=== PATIENT | male | born 2000 | race Caucasian/White ===

== ENCOUNTER 2019-12-11 21:13 | Emergency (ER) | payer OTHER ==
[2019-12-11] MEDS ORDERED: Ondansetron INJ* 2 MG/ML VIAL IV ONE ×2 (21:34→22:15)
[2019-12-11] MEDS ORDERED: NS 0.9% 1000 ML** 1,000 ML IV ONE ×3 (21:35→22:09)
--- NOTE | 2019-12-11 21:47 | UC ---
Nausea/Vomiting/Diarrhea HPI - HPI Summary HPI Summary: 19-year-old male comes in with a chief complaint of nausea and vomiting. Started about 4 hours ago. He gets epigastric pain with vomiting and then the pain goes away. No abdominal pain at rest. No fevers measured he has had some chills he does have bit of a headache his mouth feels dry and he does feel lightheaded when he tries to stand up. His girlfriend had the same symptoms 2 days ago and she got better with some IV fluid and Zofran. - History of Current Complaint Chief Complaint: UCGeneralIllness Stated Complaint: VOMITING Time Seen by Provider: 12/11/19 21:31 Pain Intensity: 5 - Allergies/Home Medications Allergies/Adverse Reactions: Allergies Allergy/AdvReac Type Severity Reaction Status Date / Time amoxicillin Allergy rash, Verified 12/11/19 21:20 throat closing Penicillins Allergy rash, Verified 12/11/19 21:20 throat closing Home Medications: Home Medications Allertec* 12/11/19 [History] Ondansetron TAB* [Zofran 4 MG Tab*] 4 mg PO ONCE PRN 12/11/19 [History Confirmed 12/11/19] Sertraline* [Zoloft*] 100 mg PO DAILY 12/11/19 [History Confirmed 12/11/19] buPROPion HCl [Bupropion HCl ER] 150 mg PO DAILY 12/11/19 [History Confirmed ] PMH/Surg Hx/FS Hx/Imm Hx Previously Healthy: Yes - Surgical History Surgical History: Yes Surgery Procedure, Year, and Place: wisdom teeth - Family History Known Family History: Positive: Non-Contributory - Social History Alcohol Use: None Substance Use Type: None Smoking Status (MU): Never Smoked Tobacco Review of Systems All Other Systems Reviewed And Are Negative: Yes Constitutional: Positive: Chills, Other - SEE HPI Skin: Positive: Negative Eyes: Positive: Negative ENT: Positive: Other - SEE HPI Respiratory: Positive: Negative Cardiovascular: Positive: Negative Gastrointestinal: Positive: Abdominal Pain, Vomiting, Nausea Motor: Positive: Negative Neurovascular: Positive: Negative Musculoskeletal: Positive: Negative Neurological/Mental Status: Positive: Headache Psychological: Positive: Negative Is Patient Immunocompromised?: No Physical Exam Triage Information Reviewed: Yes Appearance: No Pain Distress, Well-Nourished, Ill-Appearing - MILD Vital Signs: Initial Vital Signs Temp 97.6 F 12/11/19 21:15 Pulse 115 12/11/19 21:15 Resp 22 12/11/19 21:15 BP 109/66 12/11/19 21:15 Pulse Ox 100 12/11/19 21:15 Vital Signs Reviewed: Yes Eye Exam: Normal Eyes: Positive: Conjunctiva Clear ENT: Positive: Other - Oral mucosa dry. Neck: Positive: Supple Respiratory: Positive: Lungs clear, Normal breath sounds, No respiratory distress Cardiovascular: Positive: Tachycardia Abdomen Description: Positive: Nontender, Soft Bowel Sounds: Positive: Hypoactive Musculoskeletal: Positive: Strength Intact, ROM Intact Neurological: Positive: Alert Psychological: Positive: Age Appropriate Behavior Skin: Positive: Other - PALE Naus/Vom/Diarrhea Course/Dx - Course Course Of Treatment: In clinic patient received 2 L of normal saline and total of 4 mg of IV Zofran. He had improvement his dehydration and nausea symptoms. He did have some periumbilical discomfort that was nontender to palpation. He was not tender to palpation in the right lower quadrant. We discussed the signs and symptoms of appendicitis and Meckel's diverticulum. Plan at discharge is to go home and take Zofran advanced diet as tolerated and if not improved or worse go to the emergency department. - Differential Dx/Diagnosis Provider Diagnosis: Nausea & vomiting, Dehydration Condition At Discharge: Stable Discharge ED - Sign-Out/Discharge Documenting (check all that apply): Patient Departure All imaging exams completed and their final reports reviewed: No Studies - Discharge Plan Condition: Stable Disposition: HOME Prescriptions: Ondansetron ODT TAB* [Zofran 4 MG Odt TAB*] 4 mg PO Q6H PRN #10 tab.odt PRN Reason: Nausea/Vomiting Patient Education Materials: Dehydration (ED), Acute Nausea and Vomiting (ED) Referrals: [facility] [Outside] Additional Instructions: FOLLOW UP WITH [facility] IF NOT COMPLETELY IMPROVED. GO TO THE EMERGENCY DEPARTMENT IF NOT IMPROVED OR WORSE OR ANY QUESTIONS OR CONCERNS. - Billing Disposition and Condition Condition: STABLE Disposition: Home
[2019-12-11 21:59] LABS: Influenza A Molecular Negative (Negative); Influenza B Molecular Negative (Negative)
[2019-12-11 22:15] VITALS: BP 138/71
[2019-12-11] MEDS ORDERED: Ondansetron ODT TAB* 4 MG PO ONE (22:39)
== END 2019-12-11 22:50 | disposition home or self-care (01) ==
LOC: UCEAST 21:13
DX: E86.0 Dehydration (principal); R10.33 Periumbilical pain; R11.2 Nausea with vomiting, unspecified; R51 Headache; Z88.0 Allergy status to penicillin
CPT/HCPCS: 96360; 96361; 96374; 96376; 99202; A9270-GY; G0463; J2405